=== PATIENT | female | born 2000 | race Caucasian/White ===

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

== ENCOUNTER 2022-02-17 11:04 | Outpatient (CLI) | payer BC, SELFPAY ==
[2022-02-17 12:39] LABS: Anion Gap 8 mmol/L (8-16); Blood Urea Nitrogen 15 mg/dL (8-21); Calcium 9.6 mg/dL (8.9-10.7); Carbon Dioxide 25 mmol/L (22-30); Chloride 102 mmol/L (98-107); Cholesterol 175 mg/dL (0-200); Estimated Glomerular Filt Rate > 60; Glucose 290 mg/dL (65-110); HDL Direct 53 mg/dL; Potassium 3.8 mmol/L (3.4-5.0); Sodium 135 mmol/L (134-143); Triglycerides 42 mg/dL (<150)
[2022-02-17 12:51] LABS: LDL Cholesterol Direct 90 mg/dL
[2022-02-17 13:17] LABS: Creatinine Urine 118.5 mg/dL
[2022-02-17 13:30] LABS: MALB Creatinine Ratio < 5.1 mg/g (0-30); Microalbumin Urine Random < 6.0 mg/L (0-16.7)
[2022-02-20 12:12] LABS: C-Peptide 0.69 ng/mL (0.80-3.85)
[2022-02-22 14:55] LABS: Glutamic acid decarboxylase AA 20 IU/mL (<5)
== END 2022-02-17 11:05 | disposition home or self-care (01) ==
LOC: ANHWCLAB 11:11
PROVIDERS: PCP Physician Assistant; Visit Provider Internal Medicine Endocrinology, Diabetes & Metabolism
DX: E10.9 Type 1 diabetes mellitus without complications (principal); Z71.3 Dietary counseling and surveillance
CPT/HCPCS: 36415; 80048; 80061; 82043; 84443; 84681; 86341

== ENCOUNTER 2022-04-07 14:21 | Outpatient (RCR) | payer BC, SELFPAY | END 2022-06-13 14:00 | disposition home or self-care (01) | LOC: ANHDMC 14:21 | PROVIDERS: PCP Physician Assistant; Visit Provider Internal Medicine Endocrinology, Diabetes & Metabolism | DX: E10.9 Type 1 diabetes mellitus without complications (principal); Z71.89 Other specified counseling | CPT/HCPCS: G0108 ==

== ENCOUNTER 2022-04-26 15:01 | Outpatient (CLI) | payer BC, SELFPAY ==
[2022-04-26 15:23] LABS: Appearance Urine Cloudy (Clear); Bilirubin Urine 1+ (Negative); Blood Urine 3+ (Negative); Color Urine Yellow (Yellow); Glucose Urine UA Trace mg/dL (Negative); Ketones Urine 1+ mg/dL (Negative); Leukocyte Esterase Ur Trace LEU/UL (Negative); Nitrate Urine Positive (Negative); Protein Urine 3+ mg/dL (Negative); Specific Grav Ur >= 1.030 (1.001-1.035); Urobilinogen Urine 0.2 mg/dL (<2.0)
[2022-04-26 15:32] LABS: Mucus Urine Heavy /lpf; RBC Urine >75 /hpf (0-2); Squamous Epithelial Cell Urine Many /hpf (Few); WBC Urine >75 /hpf
[2022-04-26 15:35] LABS: Add Urine Microscopic? YES
== END 2022-04-26 15:02 | disposition home or self-care (01) ==
LOC: ANHLAB 15:03
PROVIDERS: PCP Physician Assistant; Visit Provider Internal Medicine
DX: R30.0 Dysuria (principal)
CPT/HCPCS: 81001; 87086; 87088

== ENCOUNTER 2023-08-19 08:10 | Outpatient (CLI) | payer OTHER, SELFPAY ==
[2023-08-19 08:58] LABS: Appearance Urine Clear (Clear); Bacteria Urine None Seen /hpf; Bilirubin Urine Negative (Negative); Blood Urine Negative (Negative); Color Urine Yellow (Yellow); Glucose Urine UA Negative (Negative); Ketones Urine 2+ mg/dL (Negative); Leukocyte Esterase Ur Trace LEU/UL (NEGATIVE); Nitrate Urine Negative (Negative); Non Pathogenic Casts 0-2; Protein Urine Trace mg/dL (Negative); RBC Urine 0-2 /hpf (0-2); Specific Grav Ur 1.032 (1.001-1.035); Squamous Epithelial Cell Urine Few /hpf (Few)
[2023-08-19 09:08] LABS: Add Urine Microscopic? YES
== END 2023-08-19 08:11 | disposition home or self-care (01) ==
PROVIDERS: PCP Physician Assistant; Visit Provider Physician Assistant
DX: R30.0 Dysuria (principal)
CPT/HCPCS: 81001; 87086

== ENCOUNTER 2024-01-08 07:28 | Outpatient (RCR) | payer OTHER, SELFPAY | END 2024-04-07 23:59 | disposition home or self-care (01) | LOC: ANHLAB 07:28 | PROVIDERS: PCP Physician Assistant; Visit Provider Physician Assistant | DX: N92.6 Irregular menstruation, unspecified (principal) | CPT/HCPCS: 36415; 84702 ==